=== PATIENT | female | born 1955 | race African-American/Black ===

== ENCOUNTER 2016-06-11 10:55 | Emergency (ER) | payer OTHER ==
[2016-06-11 11:06] VITALS: BP 138/99; PULSE 91; TEMP 97.8; BMI 41.5
[2016-06-11] MEDS ORDERED: predniSONE 20 MG TABLET (UD) PO ONE (11:43)
[2016-06-11] MEDS ORDERED: ALBUTEROL SO4 2.5/IPRATROPIUM 0.5 INH SOL 3 ML VIAL.NEB. NEB ONE (11:45)
[2016-06-11] MEDS ORDERED: predniSONE 20 MG TABLET (UD) ONE (11:45)
[2016-06-11] MEDS: ALBUTEROL SO4 2.5/IPRATROPIUM 0.5 INH SOL 3 ML VIAL.NEB. NEB SCH ×4 (11:47→12:34)
--- NOTE | 2016-06-11 12:09 | PDOC ---
History of Present Illness - General Chief Complaint: Asthma Stated Complaint: ASTHMA ATTACK Time Seen by Provider: 06/11/16 11:12 History Source: Patient - History of Present Illness Associated Symptoms: reports: cough, shortness of breath, wheezing Past History - Past Medical History Allergies/Adverse Reactions: Allergies Allergy/AdvReac Type Severity Reaction Status Date / Time Neuromuscular Blockers, Allergy Verified 06/11/16 11:05 Steroidal [Steroidal Neuromuscular Blockers] Home Medications: Ambulatory Orders Albuterol Sulfate Inhaler - [Ventolin HFA Inhaler -] 1 ih IH Q4H PRN 03/26/11 Bupropion HCl [Wellbutrin Xl -] 300 mg PO DAILY 03/26/11 Enalapril Maleate [Vasotec -] 5 mg PO DAILY 03/26/11 Glyburide/Metformin HCl [Glucovance 1.25-250 mg Tablet] 1 tab PO BID 03/26/11 Hydrochlorothiazide [Hctz] 25 mg PO DAILY 03/26/11 Loratadine [Claritin] 10 mg PO DAILY 03/26/11 Lorazepam [Ativan] 1 mg PO ASDIR PRN 03/26/11 Mometasone Furoate [Nasonex] 50 mcg IH BID 03/26/11 Montelukast Sodium [Singulair] 10 mg PO DAILY 03/26/11 Rosuvastatin [Crestor -] 20 mg PO DAILY 03/26/11 Salmeterol/Fluticasone [Advair 100Mg/50Mg] 2 disk.w IH BID 03/26/11 Sertraline HCl [Zoloft] 100 tab PO DAILY 03/26/11 Zolpidem Tartrate [Ambien] 10 mg PO DAILY 03/26/11 Percocet 5-325 mg Tablet 1 tab PO ASDIR PRN 09/04/11 Voltaren 1% 1 applic TD ASDIR 09/04/11 Diazepam [Valium] 5 mg PO Q8H PRN #2 tablet 12/31/11 Prednisone [Deltasone -] 40 mg PO DAILY #8 tablet 06/11/16 Asthma: Yes Diabetes: Yes HTN: Yes - Psycho/Social/Smoking Cessation Hx Anxiety: Yes Suicidal Ideation: No Smoking Status: Yes Smoking History: Current every day smoker Have you smoked in the past 12 months: Yes Number of Cigarettes Smoked Daily: 10 Information on smoking cessation initiated: Yes 'Breaking Loose' booklet given: 06/11/16 Hx Alcohol Use: No Drug/Substance Use Hx: No Substance Use Type: None Hx Substance Use Treatment: No Review of Systems - Review of Systems Constitutional: No: Chills, Fever Respiratory: Yes: Cough, Shortness of Breath, Wheezing *Physical Exam - Vital Signs Last Vital Signs Temp Pulse Resp BP Pulse Ox 97.8 F 91 H 18 138/99 96 06/11/16 11:04 06/11/16 11:04 06/11/16 11:04 06/11/16 11:04 06/11/16 11:04 - Physical Exam General Appearance: Yes: Appropriately Dressed. No: Apparent Distress HEENT: positive: Normal Voice Neck: positive: Supple Respiratory/Chest: positive: Lungs Clear, Normal Breath Sounds. negative: Respiratory Distress Cardiovascular: positive: Regular Rate, S1, S2 Integumentary: positive: Dry, Warm Neurologic: positive: Fully Oriented, Alert, Normal Mood/Affect ED Treatment Course - RADIOLOGY Radiology Studies Ordered: Category Date Time Status CHEST PA & LAT [RAD] Stat Radiology 06/11/16 12:06 Ordered - Medications Given in the ED: ED Medications Discontinued Medications Generic Name Dose Route Start Last Admin Trade Name Freq PRN Reason Stop Dose Admin Prednisone 60 mg 06/11/16 11:43 06/11/16 11:56 Deltasone - PO 06/11/16 11:44 60 mg ONCE ONE Administration Medical Decision Making - Medical Decision Making 06/11/16 12:07 60-year-old female history of [id number] diabetes, hypertension, asthma, last admission several years ago. No intubations, uses alb pump and machine at home, current smoker, here with productive cough x several weeks as per patient. States cough triggers her asthma almost daily and that symptoms worsened last night. Complaining of wheezing and shortness of breath. No hemoptysis, fever, chills or unexplained weight loss. See exam Asthma flare -stable w/ clear lungs in ED -nebs -pred -cxr given persistent cough in a smoker -reassess 06/11/16 12:33 Patient's lungs remained clear on reassessment. Chest x-ray read as negative. DC with prednisone taper with smoking cessation encouraged. Patient to follow- up with PMD 06/11/16 12:34 *DC/Admit/Observation/Transfer Diagnosis at time of Disposition: Asthma attack, Cough - Discharge Dispostion Disposition: HOME Condition at time of disposition: Improved - Prescriptions Prescriptions: Prednisone [Deltasone -] 40 mg PO DAILY #8 tablet - Referrals Referrals: Sandi Lynn MD [Primary Care Provider] - - Patient Instructions Printed Discharge Instructions: Asthma -- Adult, Smoking Cessation Additional Instructions: Take medications as directed and follow up with your PMD
== END 2016-06-11 12:43 | disposition home or self-care (01) ==
LOC: JERFT 10:55
PROC: 3E0F7GC Introduction of Other Therapeutic Substance into Respiratory Tract, Via Natural or Artificial Opening (ICD-10-PCS; principal; 2016-06-11)
DX: J45.901 Unspecified asthma with (acute) exacerbation (principal); I10 Essential (primary) hypertension; E11.9 Type 2 diabetes mellitus without complications; Z79.84 Long term (current) use of oral hypoglycemic drugs; E78.00 Pure hypercholesterolemia, unspecified
CPT/HCPCS: 71020-TC; 99281-25

== ENCOUNTER 2019-03-23 09:25 | Emergency (ER) | payer OTHER ==
[2019-03-23 10:01] VITALS: BMI 34.9
[2019-03-23] MEDS ORDERED: ALBUTEROL SO4 2.5/IPRATROPIUM 0.5 INH SOL 3 ML VIAL.NEB. NEB ONE ×2 (11:05→11:07)
--- NOTE | 2019-03-23 11:06 | PDOC ---
History of Present Illness - General Chief Complaint: Cold Symptoms Stated Complaint: FLU SYMPTOMS Time Seen by Provider: 03/23/19 10:23 History Source: Patient Exam Limitations: No Limitations - History of Present Illness Initial Comments: 03/23/19 12:32 63-year-old female with history of diabetes, hypertension, hyperlipidemia and asthma presents complaining of dry cough, body aches, intermittent nausea, subjective fever and chills, occasional frontal headache, sneezing x4 weeks. Also complains of urinary frequency and urgency intermittently x2 weeks. Initially experienced sore throat and bilateral earache however the symptoms have resolved on their own. Reports positive sick contacts approximately 4 weeks ago. Denies chest pain, shortness of breath, recent travel, abdominal pain, back pain. Has been taking Mucinex on and off over the past month with minimal relief of symptoms. Smokes tobacco 5 to 6 cigarettes/day. ROS: GENERAL/CONSTITUTIONAL: Body aches, subjective fever, chills, denies weakness, dizziness HEAD, EYES, EARS, NOSE AND THROAT: No changes in vision, No ear pain or discharge, No sore throat CARDIOVASCULAR: No chest pain RESPIRATORY: Dry cough denies shortness of breath GASTROINTESTINAL: Nausea, denies pain, vomiting, diarrhea or constipation GENITOURINARY: Urinary frequency and urgency MUSCULOSKELETAL: No neck or back pain SKIN: No rash NEUROLOGIC: No headache, vertigo, loss of consciousness, or loss of sensation PE: GENERAL: well-appearing, NAD, obese HEAD: NCAT EYES: Pupils equal, round and reactive to light, sclera anicteric, conjunctiva clear ENT: pharynx: no erythema, no exudate, uvula midline NECK: supple, no lymphadenopathy CHEST: nontender RESP: clear, no w/r/r CARDIO: rrr, no m/g/r ABD: +BS, soft, nontender, non distended BACK: no midline spinal ttp, no CVAT EXTREMITIES: Normal range of motion, no edema NEUROLOGICAL: Normal speech, normal gait SKIN: Warm, Dry Is this a multiple visit Asthma Patient?: No Past History - Past Medical History Allergies/Adverse Reactions: Allergies Allergy/AdvReac Type Severity Reaction Status Date / Time Neuromuscular Blockers, Allergy Verified 03/23/19 09:57 Steroidal [Steroidal Neuromuscular Blockers] Home Medications: Ambulatory Orders Albuterol Sulfate Inhaler - [Ventolin HFA Inhaler -] 1 ih IH Q4H PRN 03/26/11 Bupropion HCl [Wellbutrin Xl -] 300 mg PO DAILY 03/26/11 Enalapril Maleate [Vasotec -] 5 mg PO DAILY 03/26/11 Glyburide/Metformin HCl [Glucovance 1.25-250 mg Tablet] 1 tab PO BID 03/26/11 Hydrochlorothiazide [Hctz] 25 mg PO DAILY 03/26/11 Loratadine [Claritin] 10 mg PO DAILY 03/26/11 Lorazepam [Ativan] 1 mg PO ASDIR PRN 03/26/11 Mometasone Furoate [Nasonex] 50 mcg IH BID 03/26/11 Montelukast Sodium [Singulair] 10 mg PO DAILY 03/26/11 Rosuvastatin [Crestor -] 20 mg PO DAILY 03/26/11 Salmeterol/Fluticasone [Advair 100Mg/50Mg] 2 disk.w IH BID 03/26/11 Sertraline HCl [Zoloft] 100 tab PO DAILY 03/26/11 Zolpidem Tartrate [Ambien] 10 mg PO DAILY 03/26/11 Percocet 5-325 mg Tablet 1 tab PO ASDIR PRN 09/04/11 Voltaren 1% 1 applic TD ASDIR 09/04/11 Diazepam [Valium] 5 mg PO Q8H PRN #2 tablet 12/31/11 predniSONE [Deltasone -] 40 mg PO DAILY #8 tablet 06/11/16 Asthma: Yes Diabetes: Yes HTN: Yes - Psycho Social/Smoking Cessation Hx Smoking Status: Yes Smoking History: Current every day smoker Have you smoked in the past 12 months: Yes Number of Cigarettes Smoked Daily: 10 Information on smoking cessation initiated: No 'Breaking Loose' booklet given: 06/11/16 Hx Alcohol Use: No Drug/Substance Use Hx: No Substance Use Type: None Hx Substance Use Treatment: No *Physical Exam - Vital Signs Last Vital Signs Temp Pulse Resp BP Pulse Ox 99.8 F H 108 H 20 144/85 98 03/23/19 09:58 03/23/19 09:58 03/23/19 09:58 03/23/19 09:58 03/23/19 09:58 ED Treatment Course - RADIOLOGY Radiology Studies Ordered: Category Date Time Status CHEST PA & LAT [RAD] Stat Radiology 03/23/19 11:04 Ordered Medical Decision Making - Medical Decision Making 03/23/19 13:48 63-year-old female with history of diabetes, hypertension, hyperlipidemia, asthma complaining of 30 days of body aches, dry cough, intermittent nausea, sneezing, subjective fever, chills, occasional frontal headache, urinary frequency and positive sick contacts. Patient feels slightly better after 1 DuoNeb and Toradol 30 mg IM UA positive for ketones and 3+ glucose Advised patient to remain hydrated Positive for influenza B Chest x-ray is normal 1 tablet of Tylenol 3 provided for cough Patient is stable for discharge Advised to keep her PMD follow-up appointment scheduled for tomorrow Strict return precautions advised Discharge - Discharge Information Problems reviewed: Yes Clinical Impression/Diagnosis: Influenza Condition: Stable Disposition: HOME - Admission No - Follow up/Referral Referrals: Poornima Ziegler MD [Primary Care Provider] - - Patient Discharge Instructions - Post Discharge Activity
[2019-03-23 11:30] LABS: PH,URINE 5.5 (5.0-8.0); URINE APPEARANCE CLOUDY; URINE BILIRUBIN NEGATIVE (NEGATIVE); URINE COLOR YELLOW; URINE GLUCOSE (UA) 3+ (NEGATIVE); URINE KETONE TRACE (NEGATIVE); URINE LEUK ESTERASE NEGATIVE (NEGATIVE); URINE NITRITE NEGATIVE (NEGATIVE); URINE PROTEIN TRACE (NEGATIVE); URINE UROBILINOGEN 0.2 mg/dL (0.2-1.0)
[2019-03-23 12:45] VITALS: BP 128/77; PULSE 99; TEMP 98.6
[2019-03-23] MEDS ORDERED: ACETAMINOPHEN WITH CODEINE 300MG/30MG TABLET PO ONE (13:37)
[2019-03-23] MEDS ORDERED: ACETAMINOPHEN WITH CODEINE 300MG/30MG TABLET ONE (13:41)
== END 2019-03-23 13:58 | disposition home or self-care (01) ==
LOC: JERFT 09:25
PROC: 3E0F7GC Introduction of Other Therapeutic Substance into Respiratory Tract, Via Natural or Artificial Opening (ICD-10-PCS; principal; 2019-03-23)
DX: J11.1 Influenza due to unidentified influenza virus with other respiratory manifestations (principal); Z88.8 Allergy status to other drugs, medicaments and biological substances; E11.9 Type 2 diabetes mellitus without complications; I10 Essential (primary) hypertension; E78.5 Hyperlipidemia, unspecified; J45.909 Unspecified asthma, uncomplicated
CPT/HCPCS: 71046-TC-FY; 81003; 87086; 87804; 94640; 99282-25

== ENCOUNTER 2020-12-18 03:31 | Inpatient (IN) | payer OTHER ==
[2020-12-18] MEDS ORDERED: LORazepam 2 MG/ML SDV VIAL ONE (03:42)
[2020-12-18] MEDS ORDERED: RAPID SEQUENCE INTUBATION KIT NR ONE (03:48)
[2020-12-18] MEDS ORDERED: ROCURONIUM BROMIDE 100 MG/10 ML VIAL ONE (03:51)
[2020-12-18 04:01] VITALS: BMI 46.5
[2020-12-18] MEDS ORDERED: MIDAZOLAM IN 0.9 % SOD.CHLORID 1 MG/1 ML PLAST..BAG ONE (04:25)
[2020-12-18] MEDS ORDERED: LORazepam 2 MG/ML SDV VIAL IVPUSH ONE (04:25)
[2020-12-18] MEDS ORDERED: ROCURONIUM BROMIDE 50 MG/5 ML VIAL IV ONE (04:25)
[2020-12-18] MEDS ORDERED: MIDAZOLAM 100 MG in SODIUM CHLORIDE 100 ML IVPB SCH (04:30)
[2020-12-18 04:34] LABS: BASO % 1.1 % (0-2.0); EOS % 1.6 % (0-4.5); HEMATOCRIT 38.4 % (32.4-45.2); LYMPH % 14.1 % (8-40); MCH 29.5 pg (25.7-33.7); MCHC 33.9 g/dl (32.0-36.0); MEAN CELL VOLUME 87.1 fl (80-96); MEAN PLT VOLUME 9.2 fl (7.5-11.1); MONO % 3.2 % (3.8-10.2); PLATELET COUNT 271 10^3/uL (134-434); RBC 4.41 M/mm3 (3.60-5.2); RDW 13.9 % (11.6-15.6); WHITE BLOOD COUNT 22.4 K/mm3 (4.0-10.0)
[2020-12-18] MEDS: MIDAZOLAM IN 0.9 % SOD.CHLORID 100 MG/100 ML PLAST..BAG IVPB SCH ×2 (04:40→22:09)
[2020-12-18] MEDS ORDERED: PROPOFOL 1,000,000 MCG/100 ML VIAL ONE ×2 (04:50→08:44)
[2020-12-18] MEDS ORDERED: DEXMEDETOMIDINE HCL 200 MCG/2 ML IVPB ONE ×2 (04:53→04:54)
[2020-12-18 04:55] LABS: INR 1.16 (0.83-1.09); PROTHROMBIN TIME (PATIENT) 13.6 SEC (9.7-13.0)
[2020-12-18 04:57] LABS: ACTIVATED PTT 28.5 SECONDS (25.2-36.5)
[2020-12-18] MEDS: DEXMEDETOMIDINE IN 0.9 % NACL 400 MCG/100 ML VIAL IVPB SCH (05:02)
[2020-12-18 05:03] LABS: CALCIUM 9.4 mg/dL (8.5-10.1)
[2020-12-18 05:04] LABS: ALBUMIN 3.8 g/dl (3.4-5.0); BLOOD UREA NITROGEN 6.8 mg/dL (7-18)
[2020-12-18 05:07] LABS: CREATININE 0.8 mg/dL (0.55-1.3)
[2020-12-18 05:08] LABS: BILIRUBIN,TOTAL 0.9 mg/dL (0.2-1)
[2020-12-18] MEDS ORDERED: PIPERACILLIN/TAZOB 4.5 GM 4.5 GM in DEXTROSE 5%-WATER 100 ML IVPB ONE (05:42)
[2020-12-18] MEDS ORDERED: VANCOMYCIN 1 GM in D5W (PRE-DOCKED) 1,000 MG/250 ML IVPB ONE (05:43)
[2020-12-18] MEDS ORDERED: PROPOFOL 1,000,000 MCG/100 ML VIAL IVPUSH SCH (06:00)
[2020-12-18] MEDS ORDERED: PIPERACILLIN/TAZOB 4.5 GM 4.5 GM/100 ML BAG IVPB ONE (06:14)
[2020-12-18] MEDS ORDERED: PROPOFOL 1,000,000 MCG/100 ML VIAL IVPB SCH (06:15)
[2020-12-18] MEDS ORDERED: VANCOMYCIN 1 GRAM (PRE-DOCKED) 1,000 MG/250 ML BAG IVPB ONE (06:15)
[2020-12-18] MEDS: PROPOFOL 1,000,000 MCG/100 ML VIAL IVPUSH SCH ×5 (06:33→22:01)
[2020-12-18] MEDS ORDERED: CEFTRIAXONE 2 GM/100 ML BAG IVPB ONE (06:43)
[2020-12-18 07:00] LABS: EPI CELLS 3 /uL (0-25.1); HYALINE CASTS 0 /uL (0-3.1); URINE APPEARANCE CLEAR; URINE BACTERIA 2 /uL (0-1359); URINE BILIRUBIN NEGATIVE (NEGATIVE); URINE COLOR YELLOW; URINE GLUCOSE (UA) 3+ (NEGATIVE); URINE KETONE 1+ (NEGATIVE); URINE LEUK ESTERASE NEGATIVE (NEGATIVE); URINE NITRITE NEGATIVE (NEGATIVE); URINE PROTEIN 2+ (NEGATIVE); URINE RBC 20 /uL (0-23.9); URINE UROBILINOGEN 0.2 mg/dL (0.2-1.0); URINE WBC 3 /uL (0-25.8)
[2020-12-18] MEDS ORDERED: levETIRAcetam 500 MG/5 ML INJECTION VIAL IVPB ONE (07:00)
[2020-12-18] MEDS ORDERED: CEFTRIAXONE 2 GM in DEXTROSE 5%-WATER 100 ML IVPB ONE (07:00)
[2020-12-18 07:09] LABS: CALCIUM 9.7 mg/dL (8.5-10.1)
[2020-12-18 07:10] LABS: BLOOD UREA NITROGEN 7.7 mg/dL (7-18)
[2020-12-18 07:14] LABS: CREATININE 0.8 mg/dL (0.55-1.3)
[2020-12-18] MEDS: levETIRAcetam 500 MG/5 ML INJECTION VIAL IVPB SCH ×2 (07:14→18:50)
[2020-12-18 09:29] LABS: ANISOCYTOSIS 0; MACROCYTOSIS 0; PLATELET ESTIMATE NORMAL
[2020-12-18] MEDS ORDERED: ENOXAPARIN NA (PORCINE) 40 MG/0.4 ML DISP.SYRIN SQ SCH (10:00)
[2020-12-18] MEDS ORDERED: levETIRAcetam 500 MG/5 ML INJECTION VIAL IVPB SCH (10:00)
[2020-12-18 13:11] LABS: ALLENS TEST POSITIVE; ARTERIAL BLOOD GAS BASE EXCESS 7.3 mmol/L (-2-2); ARTERIAL BLOOD GAS PO2 133.1 mmHg (80-100); ARTERIAL BLOOD GAS pH 7.553 (7.350-7.450)
[2020-12-18 13:12] LABS: VENT MODE AC; VENT RATE 16
[2020-12-18] MEDS ORDERED: ACETAMINOPHEN 1000 MG/100 ML VIAL IVPB ONE (17:55)
[2020-12-18] MEDS ORDERED: ACETAMINOPHEN 1000 MG/100 ML VIAL IVPB PRN (17:55)
[2020-12-18] MEDS ORDERED: DEXTROSE 5%-WATER 100 ML IVPB ONE (18:54)
[2020-12-18 19:13] LABS: BF GLUCOSE (CSF ONLY) 155 mg/dL (40-70)
[2020-12-18] MEDS: VANCOMYCIN/WATER BAGS 1,250 MG/250 ML BAG IVPB SCH (19:45)
[2020-12-18] MEDS: AMPICILLIN - 2 GM in SODIUM CHLORIDE 100 ML IVPB SCH ×2 (19:45→22:02)
[2020-12-18] MEDS: CEFTRIAXONE 2 GM in DEXTROSE 5%-WATER 2 GM/100 ML BAG IVPB SCH (19:45)
[2020-12-18] MEDS ORDERED: PT OWN MED DRAWER 7, Y5N ONE ×3 (19:52→22:22)
[2020-12-18 19:55] LABS: CSF APPEARANCE CLEAR (CLEAR); CSF COLOR COLORLESS (COLORLESS); CSF WBC 0 mm3 (0-5)
[2020-12-19] MEDS: INSULIN SLIDING SCALE (NOVOLOG) 1 VIAL SQ SCH ×4 (00:17→17:31)
[2020-12-19] MEDS: PROPOFOL 1,000,000 MCG/100 ML VIAL IVPUSH SCH ×3 (01:23→09:00)
[2020-12-19] MEDS ORDERED: PT OWN MED DRAWER 7, Y5N ONE ×2 (02:34→06:06)
[2020-12-19] MEDS: AMPICILLIN - 2 GM in SODIUM CHLORIDE 100 ML IVPB SCH ×3 (02:38→09:47)
[2020-12-19] MEDS: DEXMEDETOMIDINE IN 0.9 % NACL 400 MCG/100 ML VIAL IVPB SCH (05:22)
[2020-12-19] MEDS: MIDAZOLAM IN 0.9 % SOD.CHLORID 100 MG/100 ML PLAST..BAG IVPB SCH (05:23)
[2020-12-19] MEDS ORDERED: DEXTROSE 5%-WATER 100 ML IVPB ONE (06:06)
[2020-12-19] MEDS: CEFTRIAXONE 2 GM in DEXTROSE 5%-WATER 2 GM/100 ML BAG IVPB SCH (06:10)
[2020-12-19] MEDS: levETIRAcetam 500 MG/5 ML INJECTION VIAL IVPB SCH ×2 (06:11→18:16)
[2020-12-19 06:47] LABS: BASO % 0.3 % (0-2.0); EOS % 5.2 % (0-4.5); HEMATOCRIT 37.2 % (32.4-45.2); HEMOGLOBIN 12.5 GM/dL (10.7-15.3); LYMPH % 28.6 % (8-40); MCH 28.8 pg (25.7-33.7); MCHC 33.6 g/dl (32.0-36.0); MEAN CELL VOLUME 85.9 fl (80-96); MEAN PLT VOLUME 9.6 fl (7.5-11.1); MONO % 4.2 % (3.8-10.2); NEUT % 61.7 % (42.8-82.8); PLATELET COUNT 257 10^3/uL (134-434); RBC 4.33 M/mm3 (3.60-5.2); WHITE BLOOD COUNT 15.9 K/mm3 (4.0-10.0)
[2020-12-19 07:02] LABS: CHLORIDE 100 mmol/L (98-107); SODIUM 139 mmol/L (136-145)
[2020-12-19 07:15] LABS: CALCIUM 8.6 mg/dL (8.5-10.1)
[2020-12-19 07:16] LABS: CO2 27 mmol/L (21-32); GLUCOSE,RANDOM 197 mg/dL (74-106); MAGNESIUM 1.2 mg/dL (1.8-2.4); SGOT/AST 35 U/L (15-37); SGPT/ALT 35 U/L (13-61)
[2020-12-19 07:18] LABS: TOT PROT 6.2 g/dl (6.4-8.2)
[2020-12-19 07:19] LABS: CREATININE 0.9 mg/dL (0.55-1.3); PHOSPHOROUS 2.4 mg/dL (2.5-4.9)
[2020-12-19] MEDS: VANCOMYCIN/WATER BAGS 1,250 MG/250 ML BAG IVPB SCH (07:19)
[2020-12-19 07:23] LABS: ALK PHOS 86 U/L (45-117)
[2020-12-19 07:29] LABS: ALBUMIN 2.8 g/dl (3.4-5.0); ANION GAP 13 MMOL/L (8-16)
[2020-12-19] MEDS ORDERED: MAGNESIUM SULF 50% (8.12 MEQ/2 ML-1 GM VIAL) IVPB ONE (07:35)
[2020-12-19] MEDS ORDERED: POTASSIUM CHLORIDE ORAL LIQUID 20 MEQ/15 ML PO ONE (07:36)
[2020-12-19] MEDS ORDERED: POTASSIUM CHLORIDE 20 MEQ PREMIX IVPB 100 ML IVPB ONE (08:00)
[2020-12-19] MEDS ORDERED: POTASSIUM PHOSPHATE 30 MM in SODIUM CHLORIDE 250 ML IVPB ONE (08:30)
[2020-12-19] MEDS: ENOXAPARIN NA (PORCINE) 40 MG/0.4 ML DISP.SYRIN SQ SCH (11:42)
[2020-12-19] MEDS ORDERED: LIDOCAINE 5% TOPICAL PATCH TP ONE (14:15)
[2020-12-19] MEDS ORDERED: ACETAMINOPHEN 1000 MG/100 ML VIAL IVPB ONE (14:34)
[2020-12-19] MEDS ORDERED: HALOPERIDOL LACTATE 5 MG/ML IM ONE (15:28)
[2020-12-19] MEDS ORDERED: morphine SULFATE 4 MG/ML VIAL IVPUSH ONE (16:04)
[2020-12-19] MEDS ORDERED: morphine CARPU-JECT 2 MG/1 ML DISP.SYRIN IVPUSH PRN (17:24)
[2020-12-19] MEDS ORDERED: LIDOCAINE PATCH REMOVAL MC ONE (22:00)
[2020-12-19] MEDS: morphine SULFATE 4 MG/ML VIAL IVPUSH PRN (23:48)
[2020-12-20 07:05] LABS: BASO % 0.8 % (0-2.0); EOS % 3.3 % (0-4.5); HEMATOCRIT 37.1 % (32.4-45.2); HEMOGLOBIN 12.2 GM/dL (10.7-15.3); LYMPH % 21.4 % (8-40); MCHC 32.9 g/dl (32.0-36.0); MEAN PLT VOLUME 9.7 fl (7.5-11.1); MONO % 4.9 % (3.8-10.2); NEUT % 69.6 % (42.8-82.8); PLATELET COUNT 263 10^3/uL (134-434); RBC 4.22 M/mm3 (3.60-5.2); RDW 13.9 % (11.6-15.6); WHITE BLOOD COUNT 15.4 K/mm3 (4.0-10.0)
[2020-12-20] MEDS: levETIRAcetam 500 MG/5 ML INJECTION VIAL IVPB SCH ×2 (07:15→17:48)
[2020-12-20] MEDS: INSULIN SLIDING SCALE (NOVOLOG) 1 VIAL SQ SCH ×3 (07:20→16:45)
[2020-12-20 07:32] LABS: CALCIUM 8.8 mg/dL (8.5-10.1)
[2020-12-20 07:33] LABS: ALBUMIN 3.1 g/dl (3.4-5.0); BLOOD UREA NITROGEN 7.4 mg/dL (7-18); MAGNESIUM 1.7 mg/dL (1.8-2.4)
[2020-12-20 07:36] LABS: BILIRUBIN,TOTAL 1.4 mg/dL (0.2-1); CREATININE 0.6 mg/dL (0.55-1.3)
[2020-12-20] MEDS: MIDAZOLAM IN 0.9 % SOD.CHLORID 100 MG/100 ML PLAST..BAG IVPB SCH (08:32)
[2020-12-20] MEDS: PROPOFOL 1,000,000 MCG/100 ML VIAL IVPUSH SCH (08:33)
[2020-12-20] MEDS: CEFAZOLIN 2 GM in DEXTROSE 5%-WATER - 100 ML IVPB SCH ×2 (09:14→09:28)
[2020-12-20] MEDS: ENOXAPARIN NA (PORCINE) 40 MG/0.4 ML DISP.SYRIN SQ SCH (09:15)
[2020-12-20] MEDS: morphine SULFATE 4 MG/ML VIAL IVPUSH PRN (10:20)
[2020-12-20] MEDS ORDERED: MAGNESIUM SULFATE IN WATER 2 GM/50 ML IVPB IVPB ONE (11:30)
[2020-12-20] MEDS ORDERED: PT OWN MED DRAWER 7, Y5N ONE (16:54)
[2020-12-20] MEDS ORDERED: DEXTROSE 5%-WATER 100 ML IVPB ONE (17:26)
[2020-12-20] MEDS: CEFTRIAXONE 2 GM in DEXTROSE 5%-WATER 2 GM/100 ML BAG IVPB SCH (17:30)
[2020-12-20] MEDS ORDERED: LORazepam 2 MG/ML SDV VIAL IVPUSH ONE (19:00)
[2020-12-20] MEDS ORDERED: morphine CARPU-JECT 4 MG/1 ML DISP.SYRIN IVPUSH PRN (22:23)
[2020-12-20] MEDS ORDERED: morphine SULFATE 4 MG/ML VIAL IVPUSH PRN (22:28)
[2020-12-21] MEDS: MIDAZOLAM IN 0.9 % SOD.CHLORID 100 MG/100 ML PLAST..BAG IVPB SCH (05:55)
[2020-12-21] MEDS: INSULIN SLIDING SCALE (NOVOLOG) 1 VIAL SQ SCH ×3 (06:06→18:04)
[2020-12-21] MEDS: levETIRAcetam 500 MG/5 ML INJECTION VIAL IVPB SCH ×2 (06:07→18:04)
[2020-12-21] MEDS: PROPOFOL 1,000,000 MCG/100 ML VIAL IVPUSH SCH (06:15)
[2020-12-21] MEDS ORDERED: LORazepam 2 MG/ML SDV VIAL IVPUSH PRN (08:35)
[2020-12-21] MEDS ORDERED: DEXTROSE 5%-WATER 100 ML IVPB ONE (09:14)
[2020-12-21] MEDS ORDERED: ACETAMINOPHEN 325 MG TABLET (FP) PO PRN (09:24)
[2020-12-21] MEDS: ENOXAPARIN NA (PORCINE) 40 MG/0.4 ML DISP.SYRIN SQ SCH (09:26)
[2020-12-21] MEDS: amLODIPine BESYLATE 10 MG TABLET (FP) PO SCH (09:26)
[2020-12-21] MEDS: CEFTRIAXONE 2 GM in DEXTROSE 5%-WATER 2 GM/100 ML BAG IVPB SCH (09:27)
[2020-12-21] MEDS: traMADol HCL 50 MG TABLET PO PRN ×2 (10:07→22:17)
[2020-12-21 10:48] LABS: HEMATOCRIT 37.3 % (32.4-45.2); HEMOGLOBIN 12.2 GM/dL (10.7-15.3); MCH 28.4 pg (25.7-33.7); MCHC 32.8 g/dl (32.0-36.0); MEAN CELL VOLUME 86.7 fl (80-96); PLATELET COUNT 245 10^3/uL (134-434); RDW 13.9 % (11.6-15.6); WHITE BLOOD COUNT 15.2 K/mm3 (4.0-10.0)
[2020-12-21 11:09] LABS: ALBUMIN 3.1 g/dl (3.4-5.0); BLOOD UREA NITROGEN 8.8 mg/dL (7-18); MAGNESIUM 1.9 mg/dL (1.8-2.4)
[2020-12-21 11:12] LABS: CREATININE 0.6 mg/dL (0.55-1.3)
[2020-12-21 11:13] LABS: BILIRUBIN,TOTAL 1.3 mg/dL (0.2-1); TOT PROT 7.2 g/dl (6.4-8.2)
[2020-12-21] MEDS ORDERED: LORazepam 2 MG/ML SDV VIAL IVPUSH ONE (22:51)
[2020-12-22] MEDS ORDERED: levETIRAcetam 500 MG/5 ML INJECTION VIAL IVPB SCH (00:39)
[2020-12-22] MEDS: INSULIN SLIDING SCALE (NOVOLOG) 1 VIAL SQ SCH ×3 (06:08→17:12)
[2020-12-22] MEDS ORDERED: DEXTROSE 5%-WATER 100 ML IVPB ONE (08:50)
[2020-12-22] MEDS: amLODIPine BESYLATE 10 MG TABLET (FP) PO SCH (09:59)
[2020-12-22] MEDS: ENOXAPARIN NA (PORCINE) 40 MG/0.4 ML DISP.SYRIN SQ SCH (10:06)
[2020-12-22] MEDS: levETIRAcetam 500 MG/5 ML INJECTION VIAL IVPB SCH ×2 (10:08→21:26)
[2020-12-22] MEDS: CEFTRIAXONE 2 GM in DEXTROSE 5%-WATER 2 GM/100 ML BAG IVPB SCH (10:15)
[2020-12-22] MEDS ORDERED: NICOTINE 21 MG/24 HOURS TOPICAL PATCH TD ONE (21:49)
[2020-12-23] MEDS: INSULIN SLIDING SCALE (NOVOLOG) 1 VIAL SQ SCH ×3 (06:15→17:22)
[2020-12-23 07:59] LABS: BASO % 0.5 % (0-2.0); EOS % 5.9 % (0-4.5); HEMATOCRIT 34.6 % (32.4-45.2); HEMOGLOBIN 11.9 GM/dL (10.7-15.3); LYMPH % 25.2 % (8-40); MCH 29.5 pg (25.7-33.7); MCHC 34.3 g/dl (32.0-36.0); MEAN CELL VOLUME 85.8 fl (80-96); MONO % 6.2 % (3.8-10.2); NEUT % 62.2 % (42.8-82.8); PLATELET COUNT 286 10^3/uL (134-434); RBC 4.03 M/mm3 (3.60-5.2); RDW 13.6 % (11.6-15.6); WHITE BLOOD COUNT 11.9 K/mm3 (4.0-10.0)
[2020-12-23 08:06] LABS: CALCIUM 8.8 mg/dL (8.5-10.1)
[2020-12-23 08:07] LABS: ALBUMIN 3.2 g/dl (3.4-5.0)
[2020-12-23 08:10] LABS: CREATININE 0.7 mg/dL (0.55-1.3)
[2020-12-23 08:12] LABS: TOT PROT 7.1 g/dl (6.4-8.2)
[2020-12-23] MEDS ORDERED: DEXTROSE 5%-WATER 100 ML IVPB ONE (09:42)
[2020-12-23] MEDS: amLODIPine BESYLATE 10 MG TABLET (FP) PO SCH (10:28)
[2020-12-23] MEDS: CEFTRIAXONE 2 GM in DEXTROSE 5%-WATER 2 GM/100 ML BAG IVPB SCH (10:28)
[2020-12-23] MEDS: POTASSIUM CHLORIDE TABS 20 MEQ TABLET.ER (FP) PO SCH ×2 (10:28→21:36)
[2020-12-23] MEDS: levETIRAcetam 500 MG/5 ML INJECTION VIAL IVPB SCH ×2 (10:28→21:36)
[2020-12-23] MEDS: ENOXAPARIN NA (PORCINE) 40 MG/0.4 ML DISP.SYRIN SQ SCH (10:28)
[2020-12-23] MEDS: guaiFENesin/D-M SUGAR-FREE/ACLHOL-FREE 118 ML BOTTLE PO PRN (17:24)
[2020-12-23] MEDS ORDERED: PT OWN MED DRAWER 7, Y5N ONE (17:33)
[2020-12-24] MEDS: guaiFENesin/D-M SUGAR-FREE/ACLHOL-FREE 118 ML BOTTLE PO PRN ×2 (00:53→06:55)
[2020-12-24] MEDS: INSULIN SLIDING SCALE (NOVOLOG) 1 VIAL SQ SCH ×2 (06:25→12:11)
[2020-12-24 07:16] LABS: BASO % 0.5 % (0-2.0); EOS % 6.6 % (0-4.5); HEMATOCRIT 37.2 % (32.4-45.2); HEMOGLOBIN 12.4 GM/dL (10.7-15.3); LYMPH % 33.1 % (8-40); MCHC 33.3 g/dl (32.0-36.0); MEAN CELL VOLUME 86.9 fl (80-96); MEAN PLT VOLUME 8.9 fl (7.5-11.1); MONO % 5.8 % (3.8-10.2); PLATELET COUNT 317 10^3/uL (134-434); RBC 4.28 M/mm3 (3.60-5.2); RDW 13.8 % (11.6-15.6); WHITE BLOOD COUNT 13.3 K/mm3 (4.0-10.0)
[2020-12-24 07:18] LABS: CALCIUM 9.4 mg/dL (8.5-10.1)
[2020-12-24 07:19] LABS: ALBUMIN 3.6 g/dl (3.4-5.0); BLOOD UREA NITROGEN 12.4 mg/dL (7-18)
[2020-12-24 07:20] LABS: MAGNESIUM 1.8 mg/dL (1.8-2.4)
[2020-12-24 07:22] LABS: CREATININE 0.8 mg/dL (0.55-1.3); PHOSPHOROUS 2.5 mg/dL (2.5-4.9)
[2020-12-24 07:24] LABS: BILIRUBIN,TOTAL 0.8 mg/dL (0.2-1); TOT PROT 7.6 g/dl (6.4-8.2)
[2020-12-24] MEDS ORDERED: levETIRAcetam 500 MG TABLET (FP) PO SCH (10:00)
[2020-12-24] MEDS: POTASSIUM CHLORIDE TABS 20 MEQ TABLET.ER (FP) PO SCH (10:07)
[2020-12-24] MEDS: ENOXAPARIN NA (PORCINE) 40 MG/0.4 ML DISP.SYRIN SQ SCH (10:08)
[2020-12-24] MEDS: amLODIPine BESYLATE 10 MG TABLET (FP) PO SCH (10:08)
[2020-12-24] MEDS ORDERED: PT OWN MED DRAWER 7, Y5N ONE (12:45)
[2020-12-24 15:40] VITALS: BP 129/82; PULSE 89; TEMP 98.6
== END 2020-12-24 17:10 | disposition home or self-care (01) | DRG 53 ==
LOC: JER 03:31 → JERBED 05:43 → JICU 09:46 → J4W 12-21 23:57
PROVIDERS: ADMIT Internal Medicine Pulmonary Disease; ATTEND Student in an Organized Health Care Education/Training Program
PROC: 009U3ZZ Drainage of Spinal Canal, Percutaneous Approach (ICD-10-PCS; principal; 2020-12-18)
PROC: 0BH17EZ Insertion of Endotracheal Airway into Trachea, Via Natural or Artificial Opening (ICD-10-PCS; 2020-12-18)
PROC: 5A1945Z Respiratory Ventilation, 24-96 Consecutive Hours (ICD-10-PCS; 2020-12-18)
DX: G40.909 Epilepsy, unspecified, not intractable, without status epilepticus (principal); Q28.2 Arteriovenous malformation of cerebral vessels; G81.92 Hemiplegia, unspecified affecting left dominant side; G93.41 Metabolic encephalopathy; J96.01 Acute respiratory failure with hypoxia; I10 Essential (primary) hypertension; E11.9 Type 2 diabetes mellitus without complications; R41.82 Altered mental status, unspecified; D72.829 Elevated white blood cell count, unspecified; R55 Syncope and collapse; E66.01 Morbid (severe) obesity due to excess calories; Z68.42 Body mass index [BMI] 45.0-49.9, adult; I65.22 Occlusion and stenosis of left carotid artery; E87.6 Hypokalemia; Z91.14 Patient's other noncompliance with medication regimen
CPT/HCPCS: 36415; 36600; 70450-TC; 70496-TC; 70498-TC; 70544-TC; 70551-TC; 71045-TC-FY; 74178-TC; 80048; 80053; 80061; 81003; 82550; 82553; 82803; 82945; 82962; 83036; 83605; 83735; 84100; 84157; 84484; 85025; 85027; 85610; 85730; 86850; 86900; 86901; 87040; 87045; 87046; 87070; 87077; 87086; 87205; 87324; 87449; 87529; 93005; 93010; 97116-GP; 97161-GP; 99291; 99292; C9803; J0131; Q9967; U0003; U0005

== ENCOUNTER 2021-05-10 15:32 | Emergency (ER) | payer OTHER ==
[2021-05-10 15:46] VITALS: BP 142/89; PULSE 104; TEMP 98.2; BMI 33.3
[2021-05-10] MEDS ORDERED: ACETAMINOPHEN 1000 MG/100 ML BAG IVPB ONE (16:34)
[2021-05-10] MEDS ORDERED: SODIUM CHLORIDE 1,000 ML IV STA (16:34)
[2021-05-10] MEDS ORDERED: PANTOPRAZOLE SODIUM 40 MG VIAL IVPB ONE (16:34)
[2021-05-10] MEDS ORDERED: DICYCLOMINE HCL 20 MG TABLET PO ONE (16:34)
[2021-05-10] MEDS ORDERED: ACETAMINOPHEN INJECTION 100 ML IVPB ONE (16:40)
[2021-05-10] MEDS ORDERED: DICYCLOMINE HCL 10 MG CAPSULE ONE (16:40)
[2021-05-10] MEDS ORDERED: PANTOPRAZOLE SODIUM 40 MG VIAL ONE (16:40)
[2021-05-10 17:27] LABS: EPI CELLS >36 /uL (0-25.1); HYALINE CASTS 4 /uL (0-3.1); PH,URINE 5.5 (5.0-8.0); URINE APPEARANCE CLOUDY; URINE BACTERIA 1841 /uL (0-1359); URINE BILIRUBIN NEGATIVE (NEGATIVE); URINE COLOR YELLOW; URINE GLUCOSE (UA) NEGATIVE (NEGATIVE); URINE KETONE NEGATIVE (NEGATIVE); URINE LEUK ESTERASE 2+ (NEGATIVE); URINE NITRITE NEGATIVE (NEGATIVE); URINE PROTEIN NEGATIVE (NEGATIVE); URINE RBC 11 /uL (0-23.9); URINE UROBILINOGEN 0.2 mg/dL (0.2-1.0); URINE WBC 215 /uL (0-25.8)
[2021-05-10 18:00] LABS: BASO % 0.6 % (0-2.0); EOS % 7.9 % (0-4.5); HEMATOCRIT 37.5 % (32.4-45.2); HEMOGLOBIN 12.5 GM/dL (10.7-15.3); LYMPH % 30.9 % (8-40); MCH 29.5 pg (25.7-33.7); MCHC 33.4 g/dl (32.0-36.0); MEAN CELL VOLUME 88.2 fl (80-96); MEAN PLT VOLUME 9.2 fl (7.5-11.1); MONO % 3.9 % (3.8-10.2); NEUT % 56.7 % (42.8-82.8); PLATELET COUNT 256 10^3/uL (134-434); RBC 4.25 M/mm3 (3.60-5.2); RDW 14.2 % (11.6-15.6); WHITE BLOOD COUNT 13.3 K/mm3 (4.0-10.0)
[2021-05-10 18:21] LABS: ALBUMIN 3.9 g/dl (3.4-5.0); BLOOD UREA NITROGEN 6.4 mg/dL (7-18); CALCIUM 9.6 mg/dL (8.5-10.1); MAGNESIUM 1.6 mg/dL (1.8-2.4)
[2021-05-10 18:24] LABS: CREATININE 0.8 mg/dL (0.55-1.3); PHOSPHOROUS 3.6 mg/dL (2.5-4.9)
[2021-05-10 18:26] LABS: BILIRUBIN,TOTAL 0.4 mg/dL (0.2-1); TOT PROT 7.6 g/dl (6.4-8.2)
[2021-05-10 19:32] LABS: YEAST FEW (NEGATIVE)
== END 2021-05-10 21:30 | disposition home or self-care (01) ==
LOC: JER 15:32
PROC: 3E0333Z Introduction of Anti-inflammatory into Peripheral Vein, Percutaneous Approach (ICD-10-PCS; principal; 2021-05-10)
PROC: 3E033GC Introduction of Other Therapeutic Substance into Peripheral Vein, Percutaneous Approach (ICD-10-PCS; 2021-05-10)
PROC: 3E0337Z Introduction of Electrolytic and Water Balance Substance into Peripheral Vein, Percutaneous Approach (ICD-10-PCS; 2021-05-10)
DX: R19.7 Diarrhea, unspecified (principal)
CPT/HCPCS: 36415; 74177-TC; 80053; 81003; 83690; 83735; 84100; 85025; 87086; 99285-25

== ENCOUNTER 2021-07-13 22:32 | Emergency (ER) | payer OTHER ==
[2021-07-13 22:43] VITALS: TEMP 98.2; BMI 33.3
[2021-07-13] MEDS ORDERED: ASPIRIN 325 MG TABLET PO ONE (23:38)
[2021-07-13 23:41] LABS: BASO % 0.2 % (0-2.0); EOS % 1.9 % (0-4.5); HEMATOCRIT 35.5 % (32.4-45.2); HEMOGLOBIN 11.8 GM/dL (10.7-15.3); LYMPH % 33.5 % (8-40); MCH 28.9 pg (25.7-33.7); MCHC 33.3 g/dl (32.0-36.0); MEAN CELL VOLUME 86.7 fl (80-96); MEAN PLT VOLUME 8.8 fl (7.5-11.1); MONO % 4.6 % (3.8-10.2); NEUT % 59.8 % (42.8-82.8); PLATELET COUNT 241 10^3/uL (134-434); RDW 13.6 % (11.6-15.6); WHITE BLOOD COUNT 13.3 K/mm3 (4.0-10.0)
[2021-07-13 23:55] LABS: INR 1.11 (0.83-1.09); PROTHROMBIN TIME (PATIENT) 12.8 SEC (9.7-13.0)
[2021-07-13 23:57] LABS: ACTIVATED PTT 29.6 SECONDS (25.2-36.5)
[2021-07-13] MEDS ORDERED: ASPIRIN 81 MG CHEWABLE TABLETS ONE (23:58)
[2021-07-14 00:03] LABS: ALBUMIN 3.8 g/dl (3.4-5.0); CALCIUM 9.7 mg/dL (8.5-10.1)
[2021-07-14 00:04] LABS: BLOOD UREA NITROGEN 10.7 mg/dL (7-18)
[2021-07-14 00:06] LABS: CREATININE 0.9 mg/dL (0.55-1.3)
[2021-07-14 00:08] LABS: BILIRUBIN,TOTAL 0.5 mg/dL (0.2-1); TOT PROT 7.3 g/dl (6.4-8.2)
[2021-07-14 03:34] VITALS: BP 150/78; PULSE 88
== END 2021-07-14 03:33 | disposition short-term general hospital (02) ==
LOC: JER 22:32
DX: I63.9 Cerebral infarction, unspecified (principal)
CPT/HCPCS: 0241U-QW; 36415; 70450-TC; 70496-TC; 70498-TC; 80053; 80061; 83036; 85025; 85610; 85730; 86850; 86900; 86901; 93005; 93010; 99291

== ENCOUNTER 2022-01-11 12:09 | Inpatient (IN) | payer OTHER ==
[2022-01-11] MEDS ORDERED: VANCOMYCIN 1 GM in D5W (PRE-DOCKED) 1,000 MG/250 ML IVPB ONE (13:27)
[2022-01-11] MEDS ORDERED: PIPERACILLIN/TAZOB 4.5 GM 4.5 GM in DEXTROSE 5%-WATER 100 ML IVPB ONE (13:27)
[2022-01-11] MEDS ORDERED: DIPHTH,PERTUSS(ACELL),TET 0.5 ML DISP.SYRIN IM ONE ×2 (13:35→14:07)
[2022-01-11] MEDS ORDERED: VANCOMYCIN/WATER FOR INJ (PEG) 1,000 MG/200 ML BAG IVPB ONE (14:06)
[2022-01-11 15:02] LABS: BASO % 0.7 % (0-2.0); EOS % 2.1 % (0-4.5); HEMATOCRIT 36.8 % (32.4-45.2); HEMOGLOBIN 12.2 GM/dL (10.7-15.3); LYMPH % 30.7 % (8-40); MCH 28.7 pg (25.7-33.7); MCHC 33.1 g/dl (32.0-36.0); MEAN CELL VOLUME 86.6 fl (80-96); MEAN PLT VOLUME 9.3 fl (7.5-11.1); MONO % 5.6 % (3.8-10.2); NEUT % 60.9 % (42.8-82.8); PLATELET COUNT 253 10^3/uL (134-434); RBC 4.25 M/mm3 (3.60-5.2); RDW 13.8 % (11.6-15.6); WHITE BLOOD COUNT 12.3 K/mm3 (4.0-10.0)
[2022-01-11] MEDS ORDERED: PIPERACILLIN/TAZOB 4.5 GM 4.5 GM/100 ML BAG IVPB ONE (15:24)
[2022-01-11 15:35] LABS: ALBUMIN 3.8 g/dl (3.4-5.0); CALCIUM 9.4 mg/dL (8.5-10.1)
[2022-01-11 15:38] LABS: CREATININE 0.7 mg/dL (0.55-1.3)
[2022-01-11 15:40] LABS: BILIRUBIN,TOTAL 0.3 mg/dL (0.2-1); TOT PROT 7.1 g/dl (6.4-8.2)
[2022-01-11] MEDS ORDERED: ALBUTEROL SO4 HFA INHALER IH PRN (17:18)
[2022-01-11] MEDS: HEPARIN NA (PORCINE) 5,000 UNITS/ML 1ML VIAL SQ SCH (22:55)
[2022-01-11] MEDS: ATORVASTATIN CA 20 MG TABLET (FP) PO SCH (22:56)
[2022-01-11] MEDS: levETIRAcetam 500 MG TABLET (FP) PO SCH (22:56)
[2022-01-11] MEDS: INSULIN SLIDING SCALE (NOVOLOG) 1 VIAL SQ SCH (22:59)
[2022-01-11] MEDS: ZOLPIDEM TARTRATE 5 MG TABLET PO PRN (23:00)
[2022-01-11 23:15] VITALS: BMI 38.8
[2022-01-12] MEDS: INSULIN SLIDING SCALE (NOVOLOG) 1 VIAL SQ SCH ×2 (06:06→11:56)
[2022-01-12] MEDS: glyBURIDE 2.5 MG TABLET PO SCH ×2 (06:06→16:36)
[2022-01-12] MEDS ORDERED: metFORMIN HCL 500 MG TABLET (FP) PO SCH (07:00)
[2022-01-12] MEDS: MONTELUKAST NA 10 MG TABLET PO SCH (09:17)
[2022-01-12] MEDS: HEPARIN NA (PORCINE) 5,000 UNITS/ML 1ML VIAL SQ SCH ×2 (09:17→22:03)
[2022-01-12] MEDS: HYDROCHLOROTHIAZIDE 12.5 MG CAPSULE (FP) PO SCH (09:17)
[2022-01-12] MEDS: levETIRAcetam 500 MG TABLET (FP) PO SCH ×2 (09:17→22:02)
[2022-01-12] MEDS: amLODIPine BESYLATE 10 MG TABLET (FP) PO SCH (09:17)
[2022-01-12] MEDS: SERTRALINE HCL 50 MG TABLET (FP) PO SCH (09:17)
[2022-01-12 09:24] LABS: BASO % 0.9 % (0-2.0); EOS % 3.5 % (0-4.5); HEMATOCRIT 34.9 % (32.4-45.2); HEMOGLOBIN 11.9 GM/dL (10.7-15.3); LYMPH % 35.4 % (8-40); MCH 29.3 pg (25.7-33.7); MCHC 34.3 g/dl (32.0-36.0); MEAN CELL VOLUME 85.5 fl (80-96); MEAN PLT VOLUME 9.4 fl (7.5-11.1); NEUT % 55.2 % (42.8-82.8); PLATELET COUNT 235 10^3/uL (134-434); RBC 4.08 M/mm3 (3.60-5.2); RDW 13.9 % (11.6-15.6); WHITE BLOOD COUNT 10.2 K/mm3 (4.0-10.0)
[2022-01-12 09:45] LABS: CALCIUM 8.8 mg/dL (8.5-10.1)
[2022-01-12 09:46] LABS: ALBUMIN 3.6 g/dl (3.4-5.0); BLOOD UREA NITROGEN 10.3 mg/dL (7-18)
[2022-01-12 09:47] LABS: BILIRUBIN,TOTAL 0.3 mg/dL (0.2-1); TOT PROT 6.6 g/dl (6.4-8.2)
[2022-01-12 09:49] LABS: CREATININE 0.7 mg/dL (0.55-1.3)
[2022-01-12] MEDS ORDERED: ZOLPIDEM TARTRATE 5 MG TABLET PO PRN (10:00)
[2022-01-12 10:16] LABS: ERYTHROCYTE SEDIMENTATION RATE 30 mm/hr (0-30)
[2022-01-12] MEDS: ENALAPRIL MALEATE 5 MG TABLET PO SCH (11:55)
[2022-01-12] MEDS: PIPERACILLIN/TAZOB 4.5 GM 4.5 GM in DEXTROSE 5%-WATER 100 ML IVPB SCH ×2 (13:06→17:14)
[2022-01-12] MEDS: MAGNESIUM SULFATE 16 OZ CRYSTALS TP SCH (17:11)
[2022-01-12] MEDS: NICOTINE 21 MG/24 HOURS TOPICAL PATCH TD SCH (17:51)
[2022-01-12] MEDS: ACETAMINOPHEN 325 MG TABLET (FP) PO PRN (22:00)
[2022-01-12] MEDS: ZOLPIDEM TARTRATE 5 MG TABLET PO PRN (22:00)
[2022-01-12] MEDS: ATORVASTATIN CA 20 MG TABLET (FP) PO SCH (22:02)
[2022-01-13] MEDS ORDERED: PIPERACILLIN/TAZOBACTAM 4.5 GM VIAL IVPB ONE (01:09)
[2022-01-13] MEDS: PIPERACILLIN/TAZOB 4.5 GM 4.5 GM in DEXTROSE 5%-WATER 100 ML IVPB SCH ×3 (01:52→17:00)
[2022-01-13] MEDS: glyBURIDE 2.5 MG TABLET PO SCH ×2 (07:03→16:18)
[2022-01-13 09:22] LABS: BASO % 0.6 % (0-2.0); HEMATOCRIT 36.1 % (32.4-45.2); HEMOGLOBIN 12.3 GM/dL (10.7-15.3); LYMPH % 27.4 % (8-40); MCH 29.4 pg (25.7-33.7); MCHC 34.2 g/dl (32.0-36.0); MONO % 4.8 % (3.8-10.2); NEUT % 64.2 % (42.8-82.8); PLATELET COUNT 239 10^3/uL (134-434); RDW 14.1 % (11.6-15.6); WHITE BLOOD COUNT 10.5 K/mm3 (4.0-10.0)
[2022-01-13] MEDS: MAGNESIUM SULFATE 16 OZ CRYSTALS TP SCH (09:34)
[2022-01-13] MEDS: levETIRAcetam 500 MG TABLET (FP) PO SCH ×2 (09:36→21:20)
[2022-01-13] MEDS: HYDROCHLOROTHIAZIDE 12.5 MG CAPSULE (FP) PO SCH (09:36)
[2022-01-13] MEDS: SERTRALINE HCL 50 MG TABLET (FP) PO SCH (09:36)
[2022-01-13] MEDS: amLODIPine BESYLATE 10 MG TABLET (FP) PO SCH (09:36)
[2022-01-13] MEDS: MONTELUKAST NA 10 MG TABLET PO SCH (09:37)
[2022-01-13] MEDS: HEPARIN NA (PORCINE) 5,000 UNITS/ML 1ML VIAL SQ SCH (09:37)
[2022-01-13] MEDS: NICOTINE 21 MG/24 HOURS TOPICAL PATCH TD SCH (09:37)
[2022-01-13] MEDS: ENALAPRIL MALEATE 5 MG TABLET PO SCH (09:38)
[2022-01-13 09:48] LABS: ALBUMIN 3.7 g/dl (3.4-5.0); BLOOD UREA NITROGEN 9.7 mg/dL (7-18); CALCIUM 9.7 mg/dL (8.5-10.1); MAGNESIUM 1.6 mg/dL (1.8-2.4)
[2022-01-13 09:51] LABS: CREATININE 0.7 mg/dL (0.55-1.3)
[2022-01-13 09:52] LABS: BILIRUBIN,TOTAL 0.6 mg/dL (0.2-1); TOT PROT 7.2 g/dl (6.4-8.2)
[2022-01-13 14:29] LABS: INR 1.12 (0.83-1.09); PROTHROMBIN TIME (PATIENT) 12.9 SEC (9.7-13.0)
[2022-01-13] MEDS ORDERED: MAGNESIUM 2GM/50ML STERILE WATER IVPB IVPB ONE (14:30)
[2022-01-13] MEDS ORDERED: LORazepam 0.5 MG TABLET PO ONE (18:30)
[2022-01-13] MEDS: ACETAMINOPHEN 325 MG TABLET (FP) PO PRN (20:50)
[2022-01-13] MEDS: ZOLPIDEM TARTRATE 5 MG TABLET PO PRN (21:20)
[2022-01-13] MEDS: ATORVASTATIN CA 20 MG TABLET (FP) PO SCH (21:20)
[2022-01-13] MEDS ORDERED: guaiFENesin/D-M SUGAR-FREE/ACLHOL-FREE 118 ML BOTTLE PO PRN (21:20)
[2022-01-14] MEDS: PIPERACILLIN/TAZOB 4.5 GM 4.5 GM in DEXTROSE 5%-WATER 100 ML IVPB SCH ×4 (02:58→17:57)
[2022-01-14] MEDS: glyBURIDE 2.5 MG TABLET PO SCH ×3 (07:00→16:42)
[2022-01-14] MEDS ORDERED: levETIRAcetam 500 MG/5 ML INJECTION VIAL IVPB ONE (07:47)
[2022-01-14] MEDS ORDERED: levETIRAcetam 500 MG/5 ML INJECTION VIAL IVPB SCH ×2 (07:51→09:00)
[2022-01-14 08:14] LABS: HEMOGLOBIN 12.3 GM/dL (10.7-15.3); MCH 28.2 pg (25.7-33.7); MCHC 33.1 g/dl (32.0-36.0); MEAN CELL VOLUME 85.3 fl (80-96); MEAN PLT VOLUME 9.2 fl (7.5-11.1); PLATELET COUNT 241 10^3/uL (134-434); RBC 4.34 M/mm3 (3.60-5.2); RDW 14.1 % (11.6-15.6); WHITE BLOOD COUNT 10.4 K/mm3 (4.0-10.0)
[2022-01-14 08:20] LABS: ALBUMIN 3.5 g/dl (3.4-5.0); BLOOD UREA NITROGEN 7.8 mg/dL (7-18); CALCIUM 9.5 mg/dL (8.5-10.1); MAGNESIUM 1.6 mg/dL (1.8-2.4)
[2022-01-14 08:22] LABS: PHOSPHOROUS 4.3 mg/dL (2.5-4.9)
[2022-01-14 08:23] LABS: CREATININE 0.8 mg/dL (0.55-1.3)
[2022-01-14 08:24] LABS: BILIRUBIN,TOTAL 1.1 mg/dL (0.2-1); TOT PROT 6.8 g/dl (6.4-8.2)
[2022-01-14] MEDS ORDERED: LIDOCAINE HCL 1%, 10 MG/ML (20ML VIAL) ONE (08:44)
[2022-01-14] MEDS ORDERED: GENTAMICIN SO4 80 MG/2 ML VIAL ONE (08:44)
[2022-01-14] MEDS ORDERED: BUPIVACAINE HCL/PF 0.5% (5MG/ML) 10 ML VIAL ONE (08:44)
[2022-01-14] MEDS ORDERED: oxyCODONE HCL 5 MG TABLET PO PRN (09:07)
[2022-01-14] MEDS ORDERED: ONDANSETRON 4 MG/2 ML VIAL IVPUSH PRN ×2 (09:07→10:05)
[2022-01-14] MEDS ORDERED: MIDAZOLAM HCL 2 MG/2 ML SINGLE DOSE VIAL ONE (09:14)
[2022-01-14] MEDS ORDERED: LACTATED RINGERS SOLUTION 1,000 ML IV SCH ×2 (09:15→10:05)
[2022-01-14] MEDS ORDERED: PROPOFOL 20 ML ONE (09:19)
[2022-01-14] MEDS ORDERED: BUPIVACAINE HCL/PF 0.5% (5MG/ML) 10 ML VIAL IJ ONE ×2 (09:24)
[2022-01-14] MEDS ORDERED: LIDOCAINE HCL 1%, 10 MG/ML (20ML VIAL) NR ONE ×2 (09:24)
[2022-01-14] MEDS ORDERED: DEXAMETHASONE SOD PHOSPHATE 4 MG/1 ML VIAL ONE (09:36)
[2022-01-14] MEDS ORDERED: ONDANSETRON 4 MG/2 ML VIAL ONE (09:36)
[2022-01-14] MEDS ORDERED: ceFAZolin SODIUM 1 GM VIAL ONE (09:39)
[2022-01-14] MEDS ORDERED: ceFAZolin SODIUM 1 GM VIAL IVPB ONE (09:40)
[2022-01-14] MEDS: MONTELUKAST NA 10 MG TABLET PO SCH (09:48)
[2022-01-14] MEDS: HYDROCHLOROTHIAZIDE 12.5 MG CAPSULE (FP) PO SCH (09:48)
[2022-01-14] MEDS: amLODIPine BESYLATE 10 MG TABLET (FP) PO SCH (09:48)
[2022-01-14] MEDS: ENALAPRIL MALEATE 5 MG TABLET PO SCH (09:49)
[2022-01-14] MEDS: SERTRALINE HCL 50 MG TABLET (FP) PO SCH (09:49)
[2022-01-14] MEDS ORDERED: levETIRAcetam 500 MG TABLET (FP) PO SCH (10:00)
[2022-01-14] MEDS ORDERED: ACETAMINOPHEN 325 MG TABLET (FP) PO PRN (10:05)
[2022-01-14] MEDS ORDERED: ALBUTEROL SO4 HFA INHALER IH PRN (10:05)
[2022-01-14] MEDS ORDERED: guaiFENesin/D-M SUGAR-FREE/ACLHOL-FREE 118 ML BOTTLE PO PRN (10:05)
[2022-01-14 10:53] LABS: BASO % 0.7 % (0-2.0); HEMATOCRIT 36.5 % (32.4-45.2); LYMPH % 24.1 % (8-40); MCH 28.4 pg (25.7-33.7); MCHC 32.9 g/dl (32.0-36.0); MEAN CELL VOLUME 86.3 fl (80-96); MEAN PLT VOLUME 9.3 fl (7.5-11.1); MONO % 5.4 % (3.8-10.2); NEUT % 66.8 % (42.8-82.8); PLATELET COUNT 245 10^3/uL (134-434); RBC 4.23 M/mm3 (3.60-5.2); RDW 13.9 % (11.6-15.6); WHITE BLOOD COUNT 10.9 K/mm3 (4.0-10.0)
[2022-01-14] MEDS: NICOTINE 21 MG/24 HOURS TOPICAL PATCH TD SCH (11:04)
[2022-01-14] MEDS: MAGNESIUM SULFATE 16 OZ CRYSTALS TP SCH (11:04)
[2022-01-14] MEDS ORDERED: levETIRAcetam 500 MG TABLET (FP) PO ONE (11:45)
[2022-01-14] MEDS ORDERED: MAGNESIUM 2GM/50ML STERILE WATER IVPB IVPB ONE (14:00)
[2022-01-14] MEDS ORDERED: INSULIN (NOVOLOG) ASPART 100 UNITS/ML 10ML VIAL ONE (21:45)
[2022-01-14] MEDS: INSULIN SLIDING SCALE (NOVOLOG) 1 VIAL SQ SCH (21:46)
[2022-01-14] MEDS: ZOLPIDEM TARTRATE 5 MG TABLET PO PRN (21:48)
[2022-01-14] MEDS: levETIRAcetam 500 MG TABLET (FP) PO SCH (21:48)
[2022-01-14] MEDS: ATORVASTATIN CA 20 MG TABLET (FP) PO SCH (21:48)
[2022-01-14] MEDS ORDERED: INSULIN SLIDING SCALE (NOVOLOG) 1 VIAL SQ SCH (22:00)
[2022-01-14] MEDS ORDERED: INSULIN REGULAR HUMAN 100 UNITS/ML *VIAL SQ ONE (23:07)
[2022-01-15] MEDS ORDERED: INSULIN (NOVOLOG) ASPART 100 UNITS/ML 10ML VIAL SQ ONE (00:51)
[2022-01-15] MEDS: PIPERACILLIN/TAZOB 4.5 GM 4.5 GM in DEXTROSE 5%-WATER 100 ML IVPB SCH ×3 (01:22→17:07)
[2022-01-15] MEDS: INSULIN SLIDING SCALE (NOVOLOG) 1 VIAL SQ SCH ×4 (06:23→22:26)
[2022-01-15] MEDS: HEPARIN NA (PORCINE) 5,000 UNITS/ML 1ML VIAL SQ SCH ×3 (06:23→22:22)
[2022-01-15] MEDS: glyBURIDE 2.5 MG TABLET PO SCH ×2 (06:24→16:22)
[2022-01-15] MEDS: HYDROCHLOROTHIAZIDE 12.5 MG CAPSULE (FP) PO SCH (09:59)
[2022-01-15] MEDS: NICOTINE 21 MG/24 HOURS TOPICAL PATCH TD SCH (10:00)
[2022-01-15] MEDS: levETIRAcetam 500 MG TABLET (FP) PO SCH ×2 (10:00→22:22)
[2022-01-15] MEDS ORDERED: NICOTINE 21 MG/24 HOURS TOPICAL PATCH TD SCH (10:00)
[2022-01-15] MEDS: SERTRALINE HCL 50 MG TABLET (FP) PO SCH (10:00)
[2022-01-15] MEDS: amLODIPine BESYLATE 10 MG TABLET (FP) PO SCH (10:00)
[2022-01-15] MEDS: ENALAPRIL MALEATE 5 MG TABLET PO SCH (10:03)
[2022-01-15] MEDS: MONTELUKAST NA 10 MG TABLET PO SCH (10:06)
[2022-01-15 10:09] LABS: BASO % 0.6 % (0-2.0); EOS % 1.8 % (0-4.5); HEMATOCRIT 38.6 % (32.4-45.2); HEMOGLOBIN 12.8 GM/dL (10.7-15.3); LYMPH % 23.4 % (8-40); MCH 28.6 pg (25.7-33.7); MCHC 33.1 g/dl (32.0-36.0); MEAN CELL VOLUME 86.3 fl (80-96); MEAN PLT VOLUME 9.4 fl (7.5-11.1); MONO % 5.7 % (3.8-10.2); NEUT % 68.5 % (42.8-82.8); PLATELET COUNT 277 10^3/uL (134-434); RBC 4.47 M/mm3 (3.60-5.2); RDW 13.8 % (11.6-15.6); WHITE BLOOD COUNT 15.8 K/mm3 (4.0-10.0)
[2022-01-15 10:30] LABS: ALBUMIN 3.9 g/dl (3.4-5.0); BLOOD UREA NITROGEN 12.4 mg/dL (7-18); CALCIUM 9.7 mg/dL (8.5-10.1)
[2022-01-15 10:31] LABS: PHOSPHOROUS 3.3 mg/dL (2.5-4.9)
[2022-01-15 10:32] LABS: CREATININE 0.8 mg/dL (0.55-1.3)
[2022-01-15 10:33] LABS: BILIRUBIN,TOTAL 0.4 mg/dL (0.2-1); TOT PROT 7.8 g/dl (6.4-8.2)
[2022-01-15] MEDS: MAGNESIUM SULFATE 16 OZ CRYSTALS TP SCH (15:35)
[2022-01-15] MEDS: ATORVASTATIN CA 20 MG TABLET (FP) PO SCH (22:22)
[2022-01-15] MEDS: ZOLPIDEM TARTRATE 5 MG TABLET PO PRN (22:22)
[2022-01-16] MEDS ORDERED: diphenhydrAMINE HCL 25 MG CAPSULE (FP) PO PRN (01:04)
[2022-01-16] MEDS: PIPERACILLIN/TAZOB 4.5 GM 4.5 GM in DEXTROSE 5%-WATER 100 ML IVPB SCH ×2 (02:17→10:17)
[2022-01-16] MEDS: glyBURIDE 2.5 MG TABLET PO SCH (06:43)
[2022-01-16] MEDS: HEPARIN NA (PORCINE) 5,000 UNITS/ML 1ML VIAL SQ SCH (06:43)
[2022-01-16] MEDS: INSULIN SLIDING SCALE (NOVOLOG) 1 VIAL SQ SCH ×2 (06:45→12:40)
[2022-01-16 08:00] LABS: BASO % 0.9 % (0-2.0); EOS % 5.5 % (0-4.5); HEMATOCRIT 36.6 % (32.4-45.2); HEMOGLOBIN 12.1 GM/dL (10.7-15.3); LYMPH % 36.6 % (8-40); MCH 28.4 pg (25.7-33.7); MEAN CELL VOLUME 86.1 fl (80-96); MEAN PLT VOLUME 8.9 fl (7.5-11.1); MONO % 4.8 % (3.8-10.2); NEUT % 52.2 % (42.8-82.8); PLATELET COUNT 240 10^3/uL (134-434); RBC 4.25 M/mm3 (3.60-5.2); RDW 14.3 % (11.6-15.6)
[2022-01-16 08:33] LABS: ALBUMIN 3.6 g/dl (3.4-5.0)
[2022-01-16 08:34] LABS: BLOOD UREA NITROGEN 12.8 mg/dL (7-18); CALCIUM 9.2 mg/dL (8.5-10.1); MAGNESIUM 1.8 mg/dL (1.8-2.4)
[2022-01-16 08:36] LABS: PHOSPHOROUS 4.1 mg/dL (2.5-4.9)
[2022-01-16 08:37] LABS: CREATININE 0.7 mg/dL (0.55-1.3)
[2022-01-16 08:38] LABS: BILIRUBIN,TOTAL 0.5 mg/dL (0.2-1); TOT PROT 7.1 g/dl (6.4-8.2)
[2022-01-16 10:17] VITALS: RESP 20
[2022-01-16] MEDS: NICOTINE 21 MG/24 HOURS TOPICAL PATCH TD SCH (10:17)
[2022-01-16] MEDS: SERTRALINE HCL 50 MG TABLET (FP) PO SCH (10:18)
[2022-01-16] MEDS: levETIRAcetam 500 MG TABLET (FP) PO SCH (10:18)
[2022-01-16] MEDS: MONTELUKAST NA 10 MG TABLET PO SCH (10:18)
[2022-01-16] MEDS: ENALAPRIL MALEATE 5 MG TABLET PO SCH (10:18)
[2022-01-16] MEDS: amLODIPine BESYLATE 10 MG TABLET (FP) PO SCH (10:18)
[2022-01-16] MEDS: HYDROCHLOROTHIAZIDE 12.5 MG CAPSULE (FP) PO SCH (10:18)
[2022-01-16] MEDS: MAGNESIUM SULFATE 16 OZ CRYSTALS TP SCH (10:19)
[2022-01-16 14:16] VITALS: BP 124/89; PULSE 97; TEMP 98.4
== END 2022-01-16 15:07 | disposition home or self-care (01) | DRG 384 ==
LOC: JER 12:09 → JERBED 13:32 → J7W 22:08
PROVIDERS: ADMIT Internal Medicine; ATTEND Internal Medicine
PROC: 0JCN0ZZ Extirpation of Matter from Right Lower Leg Subcutaneous Tissue and Fascia, Open Approach (ICD-10-PCS; 2022-01-14)
PROC: 0J9N0ZX Drainage of Right Lower Leg Subcutaneous Tissue and Fascia, Open Approach, Diagnostic (ICD-10-PCS; principal; 2022-01-14 09:00)
DX: S91.301A Unspecified open wound, right foot, initial encounter (principal); I10 Essential (primary) hypertension; E11.9 Type 2 diabetes mellitus without complications; J45.909 Unspecified asthma, uncomplicated; L02.611 Cutaneous abscess of right foot; X58.XXXA Exposure to other specified factors, initial encounter; Y93.9 Activity, unspecified; Y92.89 Other specified places as the place of occurrence of the external cause; Y99.9 Unspecified external cause status; E66.9 Obesity, unspecified; Z68.38 Body mass index [BMI] 38.0-38.9, adult
CPT/HCPCS: 0241U-QW; 36415; 71045-TC-FY; 73610-TC-RT-FY; 73630-TC-RT-FY; 73700-TC-RT; 73718-TC-RT; 80053; 82962; 83036; 83735; 84100; 85025; 85027; 85610; 85651; 86850; 86900; 86901; 87070; 87205; 88300-TC; 90715; 93005; 93010; 94760; 99285-25; J1644

== ENCOUNTER 2023-06-24 02:59 | Inpatient (IN) | payer OTHER ==
[2023-06-24] MEDS ORDERED: ACETAMINOPHEN INJECTION 100 ML IVPB ONE ×3 (03:48→13:43)
[2023-06-24] MEDS ORDERED: ONDANSETRON 4 MG/2 ML VIAL ONE (03:56)
[2023-06-24] MEDS: ONDANSETRON 4 MG/2 ML VIAL IVPUSH ONE (04:03)
[2023-06-24] MEDS: ACETAMINOPHEN 1000 MG/100 ML BAG IVPB ONE ×2 (04:03→10:38)
[2023-06-24 04:17] LABS: HEMATOCRIT 38.8 % (32.4-45.2); HEMOGLOBIN 12.8 GM/dL (10.7-15.3); MCH 28.2 pg (25.7-33.7); MCHC 32.9 g/dl (32.0-36.0); MEAN CELL VOLUME 85.7 fl (80-96); PLATELET COUNT 247 10^3/uL (134-434); RBC 4.52 M/mm3 (3.60-5.2); RDW 13.9 % (11.6-15.6)
[2023-06-24] MEDS ORDERED: METOCLOPRAMIDE HCL INJECTION 10 MG/2 ML VIAL ONE ×2 (04:25→08:36)
[2023-06-24] MEDS: METOCLOPRAMIDE HCL INJECTION 10 MG/2 ML VIAL IVPB ONE (04:31)
[2023-06-24 04:37] LABS: POTASSIUM 3.7 mmol/L (3.5-5.1)
[2023-06-24 04:39] LABS: ALBUMIN 3.8 g/dl (3.4-5.0); CALCIUM 9.4 mg/dL (8.5-10.1)
[2023-06-24 04:40] LABS: MAGNESIUM 1.6 mg/dL (1.8-2.4)
[2023-06-24 04:42] LABS: CREATININE 0.7 mg/dL (0.55-1.3)
[2023-06-24 04:44] LABS: BILIRUBIN,TOTAL 0.7 mg/dL (0.2-1); TOT PROT 7.5 g/dl (6.4-8.2)
[2023-06-24] MEDS ORDERED: TRIMETHOBENZAMIDE HCL 200MG/2ML INJ IM ONE (04:48)
[2023-06-24] MEDS: TRIMETHOBENZAMIDE HCL 200MG/2ML INJ IM ONE (04:54)
[2023-06-24] MEDS: MAGNESIUM SULF 50% (8.12 MEQ/2 ML-1 GM VIAL) IVPB ONE (06:16)
[2023-06-24] MEDS ORDERED: MAGNESIUM SULFATE IN WATER 2 GM/50 ML IVPB IVPB ONE (06:16)
[2023-06-24 08:07] LABS: EPI CELLS >36 /uL (0-25.1); HYALINE CASTS 1 /uL (0-3.1); PH,URINE 8.5 (5.0-8.0); URINE APPEARANCE CLEAR; URINE BACTERIA 519 /uL (0-1359); URINE BILIRUBIN NEGATIVE (NEGATIVE); URINE COLOR YELLOW; URINE GLUCOSE (UA) NEGATIVE (NEGATIVE); URINE KETONE NEGATIVE (NEGATIVE); URINE LEUK ESTERASE TRACE (NEGATIVE); URINE NITRITE NEGATIVE (NEGATIVE); URINE PROTEIN NEGATIVE (NEGATIVE); URINE RBC 29 /uL (0-23.9); URINE UROBILINOGEN 0.2 mg/dL (0.2-1.0); URINE WBC 7 /uL (0-25.8)
[2023-06-24] MEDS: METOCLOPRAMIDE HCL INJECTION 10 MG/2 ML VIAL IVPUSH ONE (08:40)
[2023-06-24] MEDS ORDERED: ONDANSETRON 4 MG/2 ML VIAL IVPUSH PRN (09:34)
[2023-06-24] MEDS ORDERED: ENOXAPARIN NA (PORCINE) 40 MG/0.4 ML DISP.SYRIN SQ ONE (09:56)
[2023-06-24] MEDS: ENOXAPARIN NA (PORCINE) 40 MG/0.4 ML DISP.SYRIN SQ SCH (09:57)
[2023-06-24] MEDS ORDERED: AMPICILLIN SODIUM 2 GM VIAL ONE (10:31)
[2023-06-24] MEDS ORDERED: CEFTRIAXONE 1 GM/50 ML BAG ONE (10:32)
[2023-06-24] MEDS: AMPICILLIN - 2 GM in SODIUM CHLORIDE 100 ML IVPB ONE (10:37)
[2023-06-24 11:15] LABS: INR 1.16 (0.83-1.09); PROTHROMBIN TIME (PATIENT) 13.4 SEC (9.7-13.0)
[2023-06-24 11:18] LABS: ACTIVATED PTT 31.6 SECONDS (25.2-36.5)
[2023-06-24] MEDS ORDERED: CEFTRIAXONE 2 GM/100 ML BAG IVPB ONE (11:19)
[2023-06-24] MEDS: CEFTRIAXONE 2,000 MG in DEXTROSE 5%-WATER - 50 ML IVPB ONE (11:20)
[2023-06-24] MEDS ORDERED: LIDOCAINE HCL 2% (20ML MULTI-DOSE VIAL) ONE (11:46)
[2023-06-24] MEDS ORDERED: MIDAZOLAM HCL 2 MG/2 ML SINGLE DOSE VIAL ONE (11:47)
[2023-06-24] MEDS: MIDAZOLAM HCL 2 MG/2 ML SINGLE DOSE VIAL IVPUSH ONE ×2 (12:41→13:01)
[2023-06-24] MEDS: LACTATED RINGERS SOLUTION 1,000 ML/1,000 ML INFUS.BAG IV SCH (12:44)
[2023-06-24] MEDS: VANCOMYCIN PREMIX 1.75 GM 1,750 MG/350 ML PIGGYBACK IVPB ONE (13:01)
[2023-06-24] MEDS ORDERED: LABETALOL HCL 20 MG/4 ML VIAL ONE (13:43)
[2023-06-24] MEDS: LABETALOL HCL 5 MG/1 ML (100MG/20 ML VIAL) IVPUSH ONE (13:46)
[2023-06-24] MEDS: IBUPROFEN 800 MG/8 ML IJ IVPB ONE (15:27)
[2023-06-24] MEDS ORDERED: IBUPROFEN 800 MG/8 ML IJ IVPB ONE (15:27)
[2023-06-24 16:14] VITALS: RESP 18
[2023-06-24] MEDS: ACYCLOVIR INJECTION 1,000 MG in DEXTROSE 5%-WATER - 250 ML IVPB SCH (16:14)
[2023-06-24] MEDS: INSULIN ASPART SLIDING SCALE (NOVOLOG) 1 VIAL SQ SCH (17:12)
[2023-06-24] MEDS: ACETAMINOPHEN 1000 MG/100 ML BAG IVPB PRN (17:49)
[2023-06-24 19:01] VITALS: BMI 37.5
[2023-06-24] MEDS: levETIRAcetam 250 MG TABLET PO SCH (21:11)
[2023-06-24 21:12] LABS: BF GLUCOSE (CSF ONLY) 136 mg/dL (40-70)
[2023-06-24 21:59] LABS: CSF APPEARANCE CLEAR (CLEAR); CSF COLOR COLORLESS (COLORLESS); CSF WBC 0 mm3 (0-5)
[2023-06-24] MEDS ORDERED: ZOLPIDEM TARTRATE 5 MG TABLET PO ONE (23:52)
[2023-06-25] MEDS: hydrOXYzine PAMOATE 25 MG CAPSULE (FP) PO ONE (00:09)
[2023-06-25] MEDS: ASPIRIN COATED 81 MG TABLET.EC PO SCH (09:52)
[2023-06-25] MEDS: amLODIPine BESYLATE 5 MG TABLET (FP) PO SCH (09:52)
[2023-06-25] MEDS: TOPIRAMATE 25 MG TABLET PO SCH (09:52)
[2023-06-25 10:05] LABS: BASO % 0.8 % (0-2.0); EOS % 1.9 % (0-4.5); HEMATOCRIT 34.8 % (32.4-45.2); HEMOGLOBIN 11.5 GM/dL (10.7-15.3); LYMPH % 42.1 % (8-40); MCH 28.3 pg (25.7-33.7); MEAN CELL VOLUME 85.9 fl (80-96); MEAN PLT VOLUME 9.2 fl (7.5-11.1); MONO % 6.3 % (3.8-10.2); NEUT % 48.9 % (42.8-82.8); PLATELET COUNT 233 10^3/uL (134-434); RBC 4.05 M/mm3 (3.60-5.2); RDW 14.2 % (11.6-15.6); WHITE BLOOD COUNT 13.4 K/mm3 (4.0-10.0)
[2023-06-25 10:25] LABS: POTASSIUM 3.6 mmol/L (3.5-5.1)
[2023-06-25 10:32] LABS: CREATININE 0.8 mg/dL (0.55-1.3)
[2023-06-25 10:34] LABS: CALCIUM 8.2 mg/dL (8.5-10.1); MAGNESIUM 1.8 mg/dL (1.8-2.4); TOT PROT 6.6 g/dl (6.4-8.2)
[2023-06-25 10:40] LABS: BLOOD UREA NITROGEN 9.2 mg/dL (7-18)
[2023-06-25 10:41] LABS: ALBUMIN 3.3 g/dl (3.4-5.0); BILIRUBIN,TOTAL 0.8 mg/dL (0.2-1)
[2023-06-25 10:42] LABS: PHOSPHOROUS 2.9 mg/dL (2.5-4.9)
[2023-06-25] MEDS: ACETAMINOPHEN 325 MG TABLET (FP) PO PRN (21:17)
[2023-06-26] MEDS: sitaGLIPtin PHOSPHATE 50 MG TABLET PO SCH (06:12)
[2023-06-26 07:32] LABS: BASO % 0.8 % (0-2.0); EOS % 3.8 % (0-4.5); HEMATOCRIT 35.9 % (32.4-45.2); HEMOGLOBIN 11.7 GM/dL (10.7-15.3); LYMPH % 34.4 % (8-40); MCH 28.2 pg (25.7-33.7); MCHC 32.6 g/dl (32.0-36.0); MEAN CELL VOLUME 86.4 fl (80-96); MEAN PLT VOLUME 9.2 fl (7.5-11.1); MONO % 5.4 % (3.8-10.2); NEUT % 55.6 % (42.8-82.8); PLATELET COUNT 219 10^3/uL (134-434); RBC 4.15 M/mm3 (3.60-5.2); RDW 13.9 % (11.6-15.6); WHITE BLOOD COUNT 11.5 K/mm3 (4.0-10.0)
[2023-06-26 07:43] LABS: POTASSIUM 3.8 mmol/L (3.5-5.1)
[2023-06-26 07:45] LABS: CALCIUM 9.3 mg/dL (8.5-10.1)
[2023-06-26 07:46] LABS: ALBUMIN 3.4 g/dl (3.4-5.0); BLOOD UREA NITROGEN 10.9 mg/dL (7-18); MAGNESIUM 1.9 mg/dL (1.8-2.4)
[2023-06-26 07:49] LABS: CREATININE 0.7 mg/dL (0.55-1.3); PHOSPHOROUS 2.4 mg/dL (2.5-4.9)
[2023-06-26 07:50] LABS: BILIRUBIN,TOTAL 0.8 mg/dL (0.2-1)
[2023-06-26 07:51] LABS: TOT PROT 6.9 g/dl (6.4-8.2)
[2023-06-26] MEDS ORDERED: NAPH,MB-DB/K PH,MBDB POWDER PACKET PO ONE (09:00)
[2023-06-26 10:03] VITALS: BP 156/97; PULSE 88; TEMP 98
== END 2023-06-26 10:07 | disposition home or self-care (01) | DRG 23 ==
LOC: JER 02:59 → JERBED 10:34 → J4W 16:51 → J4S 18:49
PROVIDERS: ADMIT Internal Medicine; ATTEND Internal Medicine
PROC: 009U3ZZ Drainage of Spinal Canal, Percutaneous Approach (ICD-10-PCS; principal; 2023-06-24)
PROC: 00JU3ZZ Inspection of Spinal Canal, Percutaneous Approach (ICD-10-PCS; 2023-06-24)
DX: G43.909 Migraine, unspecified, not intractable, without status migrainosus (principal); R56.9 Unspecified convulsions; I10 Essential (primary) hypertension; E78.5 Hyperlipidemia, unspecified; E11.9 Type 2 diabetes mellitus without complications; J44.9 Chronic obstructive pulmonary disease, unspecified; Z86.73 Personal history of transient ischemic attack (TIA), and cerebral infarction without residual deficits; Z79.84 Long term (current) use of oral hypoglycemic drugs; Z72.0 Tobacco use
CPT/HCPCS: 0241U-QW; 36415; 62272; 70450-TC; 71045-TC-FY; 74177-TC; 80048; 80053; 80061; 81003; 82945; 82962; 83036; 83735; 84100; 84157; 84484; 85025; 85027; 85610; 85730; 86850; 86900; 86901; 87040; 87070; 87086; 87205; 87529; 93005; 93010; 97116-GP; 97161-GP; 99285-25; J0131; J3370; Q9967